=== PATIENT | male | born 1940 | race Caucasian/White ===

== ENCOUNTER 2024-01-16 02:38 | Observation (INO) | payer MEDICARE ==
--- NOTE | 2024-01-16 03:36 | ED ---
Chest Pain HPI - General Source: patient, family Mode of arrival: ambulatory Limitations: no limitations <Shayne Cardenas - Last Filed: 01/16/24 03:37> <Jackie Cruz - Last Filed: 01/16/24 08:00> - General Chief Complaint: Chest Pain Stated Complaint: chest pain Time Seen by Provider: 01/16/24 03:36 - History of Present Illness Initial Comments: 83-year-old male with past medical history significant for known coronary artery disease status post stenting presented to the ED with chief complaint of chest pain. Patient reports that at around 2 AM maximino woke up with pain in the middle of his chest described as a pressure-like feeling. (Shayne Cardenas) Ruben is a pleasant 83-year-old gentleman who presents the ER today after waking from sleep with chest pressure. Patient states that he has a history of coronary artery disease had a STEMI in [address] ates he has done quite well since then. Had a cardiac cath in 2016 and otherwise just has annual follow-ups and occasional stress test. Patient does note that last month he was helping a neighbor did get out large tree roots in his front yard and he did have some lightheadedness and shortness of breath with some chest pressure that caused him to stop working. Patient states that tonight he was asleep when he woke from sleep with chest pressure, he did not get lightheaded or diaphoretic like he did with his previous heart attack but it was concerning to him so he came to the ER for evaluation. (Jackie Cruz) - Related Data Home Medications Medication Instructions Recorded Confirmed Alfuzosin HCl [Uroxatral ER] 10 mg PO DAILY 07/18/16 01/16/24 Atorvastatin [Lipitor] 10 mg PO HS 07/18/16 01/16/24 Aspirin EC [Ecotrin Low Dose] 81 mg PO DAILY 01/16/24 01/16/24 Cholecalciferol [Vitamin D3 (25 50 mcg PO DAILY 01/16/24 01/16/24 Mcg = 1000 Iu)] Glucosamine/Chondr Woodson A Sod [Osteo 1 tab PO HS 01/16/24 01/16/24 Bi-Flex Caplet] Magnesium Oxide [Magnesium] 500 mg PO DAILY 01/16/24 01/16/24 Vitamin B Complex 1 cap PO DAILY 01/16/24 01/16/24 Allergies Allergy/AdvReac Type Severity Reaction Status Date / Time No Known Allergies Allergy Verified 01/16/24 07:10 Review of Systems ROS Other: All systems not noted in ROS Statement are negative. <Shayne Cardenas - Last Filed: 01/16/24 03:37> ROS Other: All systems not noted in ROS Statement are negative. <Jackie Cruz P - Last Filed: 01/16/24 08:00> ROS Statement: Those systems with pertinent positive or pertinent negative responses have been documented in the HPI. EKG Findings - EKG Comments: EKG Findings:: EKG interpreted by me, EKG obtained due to complaint of chest pain, EKG obtained at 3:42 AM, rate is 45 rhythm is sinus bradycardia, CT 156, QRS 88 QTc 409 there is no acute ST elevations or depressions no evidence of ischemia or infarction. Profound bradycardia is noted. <Jackie Cruz - Last Filed: 01/16/24 08:00> Past Medical History Past Medical History: Coronary Artery Disease (CAD), Hypertension, Myocardial Infarction ([place]), Osteoarthritis (OA), Prostate Disorder Additional Past Medical History / Comment(s): hx irregular heartbeat, constipation, hx kidney stones, enlarged prostate Last Myocardial Infarction Date:: 2007 History of Any Multi-Drug Resistant Organisms: None Reported Past Surgical History: Heart Catheterization, Heart Catheterization With Stent Additional Past Surgical History / Comment(s): gary cataracts Past Anesthesia/Blood Transfusion Reactions: Motion Sickness Date of Last Stent Placement:: 2007 Past Psychological History: No Psychological Hx Reported Smoking Status: Never smoker Past Alcohol Use History: None Reported Past Drug Use History: None Reported - Past Family History Brother(s) Family Medical History: Cancer <Shayne Cardenas - Last Filed: 01/16/24 03:37> General Exam Limitations: no limitations <Shayne Cardenas - Last Filed: 01/16/24 03:37> <Jackie Cruz P - Last Filed: 01/16/24 08:00> - General Exam Comments Initial Comments: Visual Physical Exam Vital signs reviewed General: Well-appearing, nontoxic, no acute distress. Head: Normocephalic, atraumatic Eyes: PERRLA, EOMI ENT: Airway patent Chest: Nonlabored breathing Skin: No visual rash, normal skin tone Neuro: Alert and oriented 3 Musculoskeletal: No gross abnormalities (Shayne Cardenas) Physical Exam GENERAL: Patient is well-developed and well-nourished. Patient is nontoxic and well- hydrated and is in no distress. HENT: Normocephalic, Atraumatic. EYES: PERRL, EOMI PULMONARY: Unlabored respirations. No audible rales rhonchi or wheezing was noted. CARDIOVASCULAR: Chronic, regular ABDOMEN: Soft and nontender with normal bowel sounds. SKIN: Skin is clear with no lesions or rashes and otherwise unremarkable. : Deferred NEUROLOGIC: Patient is alert and oriented x3. Moving all extremities spontaneously MUSCULOSKELETAL: Normal extremities with adequate strength and full range of motion. No lower extremity swelling or edema. No calf tenderness. PSYCHIATRIC: Normal psychiatric evaluation. (Jackie Cruz) Course Vital Signs 01/16/24 01/16/24 02:51 06:16 Temperature 97.8 F Pulse Rate 53 L 54 L Respiratory 17 18 Rate Blood Pressure 147/80 144/82 O2 Sat by Pulse 97 97 Oximetry Chest Pain MDM <Shayne Cardenas - Last Filed: 01/16/24 03:37> <Jackie Cruz - Last Filed: 01/16/24 08:00> - MDM Quicknote portion performed. Signed Shayne BECK-Mariana (Shayne Cardenas) Was pt. sent in by a medical professional or institution (KIRAN Castaneda, DATA CONVERSION ANALYST, urgent care, hospital, or skilled nursing...) When possible be specific @ -No Did you speak to anyone other than the patient for history (EMS, parent, family, police, friend...)? What history was obtained from this source @ -No Did you review nursing and triage notes (agree or disagree)? Why? @ -I reviewed and agree with nursing and triage notes Were old charts reviewed (outside hosp., previous admission, EMS record, old EKG, old radiological studies, urgent care reports/EKG's, skilled nursing records)? Report findings @ -Previous visits and cardiac cath from 2015 were reviewed Differential Diagnosis (chest pain, altered mental status, abdominal pain women, abdominal pain men, vaginal bleeding, weakness, fever, dyspnea, syncope, headache, dizziness, GI bleed, back pain, seizure, CVA, palpatations, mental health)? @ -Differential Chest Pain: Stable Angina, Unstable Angina, STEMI, NSTEMI Aortic Dissection, Pneumothorax, Musculoskeletal, Esophageal Spasm GERD, Cholecystitis, Pancreatitis, Zoster, this is not meant to be an all-inclusive list. EKG interpreted by me (3pts min.). @ -As above X-rays interpreted by me (1pt min.). @ -No focal consolidations, no widened mediastinum no pneumothorax no pleural effusions CT interpreted by me (1pt min.). @ -None done U/S interpreted by me (1pt. min.). @ -None done What testing was considered but not performed or refused? (CT, X-rays, U/S, labs)? Why? @ -None What meds were considered but not given or refused? Why? @ -None Did you discuss the management of the patient with other professionals (professionals i.e. , PA, DATA CONVERSION ANALYST, lab, RT, psych nurse, forensic social worker, band top maker, teacher, licensing officer, pillowcase folder)? Give summary @ -No Was smoking cessation discussed for >3mins.? @ -No Was critical care preformed (if so, how long)? @ -No Were there social determinants of health that impacted care today? How? (Homelessness, low income, unemployed, alcoholism, drug addiction, transportation, low edu. Level, literacy, decrease access to med. care, m[facility], rehab)? @ -No Was there de-escalation of care discussed even if they declined (Discuss DNR or withdrawal of care, Hospice)? DNR status @ -No What co-morbidities impacted this encounter? (DM, HTN, Smoking, COPD, CAD, Cancer, CVA, ARF, Chemo, Hep., AIDS, mental health diagnosis, sleep apnea, morbid obesity)? @ -None Was patient admitted / discharged? Hospital course, mention meds given and route, prescriptions, significant lab abnormalities, going to OR and other pertinent info. @ -Admit 83-year-old with known CAD no recent cardiac workup presenting with chest pain that woke him from sleep. Patient also had episode of exertional chest pain that limited his activity last month. Given his history regardless of his normal EKG he will be placed in observation for evaluation by cardiology. Undiagnosed new problem with uncertain prognosis? @ -No Drug Therapy requiring intensive monitoring for toxicity (Heparin, Nitro, Insulin, Cardizem)? @ -No Were any procedures done? @ -No Diagnosis/symptom? @ -Unstable angina Acute, or Chronic, or Acute on Chronic? @ -Acute Uncomplicated (without systemic symptoms) or Complicated (systemic symptoms)? @ -Default Side effects of treatment? @ -No Exacerbation, Progression, or Severe Exacerbation? @ -No Poses a threat to life or bodily function? How? (Chest pain, [place], [place], pneumonia, PE, COPD, DKA, ARF, appy, cholecystitis, CVA, Diverticulitis, Homicidal, Suicidal, threat to staff... and all critical care pts) @ -Yes (Jackie Cruz) Disposition <Shayne Cardenas - Last Filed: 01/16/24 03:37> Is patient prescribed a controlled substance at d/c from ED?: No <Jackie Cruz - Last Filed: 01/16/24 08:00> Clinical Impression: Chest pain Disposition: ADMITTED IP TO THIS HOSP Condition: Stable
[2024-01-16 04:10] LABS: Basophils % (A) 1 %; Eosinophils # (A) 0.2 k/uL (0-0.7); Eosinophils % (A) 4 %; HCT 43.9 % (39.0-53.0); HGB 14.3 gm/dL (13.0-17.5); Lymphocytes # (A) 1.8 k/uL (1.0-4.8); Lymphocytes % (A) 35 %; MCH 32.3 pg (25.0-35.0); MCHC 32.6 g/dL (31.0-37.0); MCV 98.9 fL (80.0-100.0); Mean Platelet Volume 7.3; Monocytes # (A) 0.4 k/uL (0-1.0); Monocytes % (A) 7 %; Neutrophils # (A) 2.7 k/uL (1.3-7.7); Neutrophils % (A) 52 %; Platelet Count 178 k/uL (150-450); RBC 4.44 m/uL (4.30-5.90); RDW 12.5 % (11.5-15.5); WBC 5.1 k/uL (3.8-10.6)
--- NOTE | 2024-01-16 04:13 | XR ---
EXAMINATION TYPE: XR chest 2V DATE OF EXAM: 01/16/2024 COMPARISON: Prior chest x-ray July 30, 2011 HISTORY: Chest pain. TECHNIQUE: Frontal and lateral views of the chest are obtained. FINDINGS: There is no suspicious new focal air space opacity, pleural effusion, or pneumothorax seen . The cardiac silhouette size remains within normal limits. Underlying scoliotic curvature with mult ilevel spurring in the lower thoracic spine is redemonstrated. IMPRESSION: No acute cardiopulmonary process.
[2024-01-16 04:28] LABS: ALT 26 U/L (4-49); AST 26 U/L (17-59); African American GFR (CKD) 69 (>60 ml/min/1.73 sqM); Albumin 3.7 g/dL (3.5-5.0); Alkaline Phosphatase 67 U/L (38-126); Anion Gap 3 mmol/L; Blood Urea Nitrogen 26 mg/dL (9-20); Calcium 9.2 mg/dL (8.4-10.2); Carbon Dioxide 31 mmol/L (22-30); Chloride 106 mmol/L (98-107); Glucose 84 mg/dL (74-99); Magnesium 2.2 mg/dL (1.6-2.3); Non-African American GFR(CKD) 60 (>60 ml/min/1.73 sqM); Potassium 4.3 mmol/L (3.5-5.1); Sodium 140 mmol/L (137-145); Total Bilirubin 0.7 mg/dL (0.2-1.3); Total Protein 6.5 g/dL (6.3-8.2)
[2024-01-16 04:33] LABS: Partial Thromboplastin Time 25.9 sec (22.0-30.0); Prothrombin Time 10.9 sec (10.0-12.5)
[2024-01-16] MEDS: ASPIRIN 81 MG PO STA (05:08)
[2024-01-16] MEDS ORDERED: NITROGLYCERIN SL TABS 0.4 MG TAB SUBLINGUAL PRN (05:37)
--- NOTE | 2024-01-16 06:33 | P.HPIM ---
History of Present Illness H&P Date: 01/16/24 Chief Complaint: Chest pain 83-year-old male with history of CAD status post stents 2007 Patient coming in for sudden onset chest pain that woke him up from sleep he described it as pressure-like across his chest 8 out of 10 in severity without any nausea vomiting profuse sweating palpitations however he was feeling dizzy lightheaded and decided to take some aspirin and come to the hospital for evaluation. He added that he has been feeling dizzy and lightheaded for the past week is all triggered by some yard work that he done a week ago that lasted about 7 hours he was exhausted toward the end where he was pulling roots and big plants of the ground where he also felt some chest heaviness at that time was profusely sweating and feeling dizzy Otherwise overall he has been in good health and able to do work around the house and be active without limitations related shortness of breath or chest pain. Patient denies any tobacco smoking illicit drugs or heavy alcohol Patient denies any recent illness or hospitalization review of systems Pertinent positives as noted in HPI. All other systems were reviewed and are negative on exam Constitutional: No acute distress, conversant, pleasant Eyes: Anicteric sclerae, moist conjunctiva, Pupils equal round reactive to light ENMT: NC/AT Oropharynx clear, no erythema, or exudates Neck: Supple, no masses, or JVD No carotid bruits No thyromegaly Lungs: Clear to auscultation Clear to percussion Normal respiratory effort, no accessory muscle use Cardiovascular: Heart regular in rate and rhythm, No murmurs, gallops, or rubs No peripheral edema Abdominal: Soft Nontender, no guarding, rebound or rigidity Abdomen moving with respiration Normoactive bowel sounds Extremities: No digital cyanosis No clubbing Pedal pulses intact and symmetrical Radial pulses intact and symmetrical No calf tenderness Psychiatric: Alert and oriented to person, place and time Appropriate affect fair judgement Neuro Muscles Strength 5/5 in all 4 extremities Sensation to light touch grossly present throughout Cranial nerves II-XII grossly intact Past Medical History Past Medical History: Coronary Artery Disease (CAD), Hypertension, Myocardial Infarction ([place]), Osteoarthritis ([place]), Prostate Disorder Additional Past Medical History / Comment(s): hx irregular heartbeat, c onstipation, hx kidney stones, enlarged prostate Last Myocardial Infarction Date:: 2007 History of Any Multi-Drug Resistant Organisms: None Reported Past Surgical History: Heart Catheterization, Heart Catheterization With Stent Additional Past Surgical History / Comment(s): gary cataracts Past Anesthesia/Blood Transfusion Reactions: Motion Sickness Date of Last Stent Placement:: 2007 Past Psychological History: No Psychological Hx Reported Smoking Status: Never smoker Past Alcohol Use History: None Reported Past Drug Use History: None Reported - Past Family History Brother(s) Family Medical History: Cancer Medications and Allergies Home Medications Medication Instructions Recorded Confirmed Type Alfuzosin HCl [Uroxatral ER] 10 mg PO DAILY 07/18/16 07/22/16 History Aspirin 325 mg PO DAILY 07/18/16 07/22/16 History Atorvastatin [Lipitor] 10 mg PO Q48H 07/18/16 07/22/16 History Atorvastatin [Lipitor] 20 mg PO Q48H 07/18/16 07/22/16 History Cholecalciferol [Vitamin D3] 2,000 unit PO DAILY 07/18/16 07/22/16 History Metoprolol Tartrate [Lopressor] 12.5 mg PO BID 07/18/16 07/22/16 History Allergies Allergy/AdvReac Type Severity Reaction Status Date / Time No Known Allergies Allergy Verified 07/22/16 06:47 Physical Exam Vitals: Vital Signs Temp Pulse Resp BP Pulse Ox 01/16/24 06:16 54 L 18 144/82 97 01/16/24 02:51 97.8 F 53 L 17 147/80 97 Intake and Output 01/15/24 01/15/24 01/16/24 14:59 22:59 06:59 Other: Weight 61.235 kg Results CBC & Chem 7: 01/16/24 03:57 01/16/24 03:57 Labs: Abnormal Lab Results - Last 24 Hours (Table) 01/16/24 Range/Units 03:57 Carbon Dioxide 31 H (22-30) mmol/L BUN 26 H (9-20) mg/dL Assessment and Plan Assessment: 83-year-old male with CAD status post stents 2007 coming in for chest pain I discussed case with ED doctor and accepted the admission for chest pain to rule out acute coronary syndrome with anticipated length of stay less than 2 midnights Atypical chest pain rule out ACS Cardiac monitoring Monitor vital signs EKG no acute ST changes Chest x-ray no acute cardiopulmonary process Nitro as needed for pain Continue with aspirin 325 mg daily Continue with statin Continue with metoprolol 12.5 mg p.o. d twice daily, hold for systolic blood pressure less than 90 or heart rate less than 55 Cardiology consult Blood work unremarkable white count 5.1 hemoglobin 14 Sodium 140 potassium 4.3 BUN 36 creatinine 1.1 Troponins negative continue to trend Full code Heparin subcu 3 times daily
[2024-01-16] MEDS ORDERED: HEPARIN SODIUM,PORCINE 10,000 UNIT in SODIUM CHLORIDE 0.9% 1,000 ML IRRIGATION PRN (07:00)
[2024-01-16] MEDS ORDERED: HEPARIN SODIUM,PORCINE (1 ML) 2,500 UNIT in SODIUM CHLORIDE 0.9% 250 ML IRRIGATION PRN (07:00)
[2024-01-16] MEDS: HEPARIN SODIUM,PORCINE 5,000 UNIT/ML 1 ML VIAL SQ SCH (08:00)
[2024-01-16] MEDS ORDERED: ATORVASTATIN 20 MG TAB PO SCH (09:00)
[2024-01-16] MEDS ORDERED: METOPROLOL TARTRATE 12.5 MG TAB PO SCH (09:00)
[2024-01-16] MEDS ORDERED: ALPRAZolam 0.25 MG TAB PO PRN (10:16)
[2024-01-16] MEDS ORDERED: ALPRAZolam 0.5 MG TAB PO PRN (10:16)
[2024-01-16] MEDS: ASPIRIN 325 MG TAB PO STA (10:47)
[2024-01-16] MEDS: SODIUM CHLORIDE 0.9% 1,000 ML IV SCH ×2 (10:48→14:36)
[2024-01-16] MEDS: ATORVASTATIN 80 MG TAB PO STA (10:48)
--- NOTE | 2024-01-16 10:50 | P.CRDCN ---
History of Present Illness Consult date: 01/16/24 Consult reason: chest pain History of present illness: History of present illness: This is an 83-year-old male patient of Dr. HAM Travis with past medical history of coronary artery disease with prior [place] and PCI, hypertension, dyslipidemia. We have been asked to evaluate the patient for chest pain. Patient presented to the emergency center due to chest pain that started around 2 AM in the morning in the middle of his chest was pressure-like. This pain woke him from sleep. Patient is also noted symptoms of lightheadedness shortness of breath and chest pain with exertion. Discussed diagnostic and treatment options and he is agreeable to move forward with cardiac catheterization today. EKG sinus bradycardia 45 bpm Chest x-ray: No acute process CBC INR unremarkable. BUN 26 creatinine 1.14, potassium 4.3, troponin negative x 2. Liver function test are normal. Magnesium 2.2. Home cardiac medications: Aspirin 81 mg daily, atorvastatin 10 mg daily, magnesium 500 mg daily Patient underwent cardiac catheterization [address] HAM Travis which revealed right dominant system. Smooth narrowing of 35% of the RCA just before the st ented segment. Stented segment is widely patent. LAD is 40% mid lesion with mild calcification. Nondominant circumflex is fair in caliber and distribution and is free of significant disease. EF is 55%. Lexiscan Cardiolite stress test performed 09/09/2022 revealed unremarkable Lexiscan. Normal MPI with normal ejection fraction. An inferior wall fixed defect with normal contractility consistent with diaphragmatic attenuation. No stress-induced ischemia. EF is more than 60%. Echocardiogram performed 12/26/2021 in the office revealed EF of 50 to 55%. Mild aortic regurgitation. Moderate mitral regurgitation, moderate tricuspid regurgitation. PASP 43 mmHg. Review Of Systems: At the time of my exam: CONSTITUTIONAL: Denies fever or chills. HEENT: Denies blurred vision, vision changes, or eye pain. Denies hemoptysis CARDIOVASCULAR: Denies chest pain. Denies orthopnea. Denies PND. Denies palpitations RESPIRATORY: Denies shortness of breath. GASTROINTESTINAL: Denies abdominal pain. Denies nausea or vomiting. HEMATOLOGIC: Denies bleeding disorders. GENITOURINARY: Denies any blood in urine. SKIN: Denies pruitis. Denies rash. Physical examination: Gen: This is an 83-year-old male in no acute distress VS: reviewed HEENT: Head is atraumatic, normocephalic. Pupils equal, round. Sclerae is anicteric. NECK: Supple. No JVD. LUNGS: Clear to auscultation. No wheezes or rhonchi. No intercostal retractions. HEART: Regular rate and rhythm. No murmur. ABDOMEN: Soft No tenderness. EXTREMITIES: No pedal edema. No calf tenderness. NEUROLOGICAL: Patient is awake, alert and oriented x3. Assessment: Chest pain exertional with lightheadedness dizziness, rule out coronary artery disease as culprit History of coronary artery disease with previous PCI of the RCA Hypertension Dyslipidemia Plan: Resume patient's home cardiac medications Schedule patient for cardiac catheterization with Dr. HAM Travis today. Obtain 2-D echocardiogram and Doppler study to assess cardiac structure and function Further recommendations to follow based upon clinical course Thank you kindly for this consultation. Nurse practitioner note has been reviewed, I agree with documented findings and plan of care. Patient was seen and examined. Past Medical History Past Medical History: Coronary Artery Disease (CAD), Hypertension, Myocardial Infarction ([place]), Osteoarthritis ([place]), Prostate Disorder Additional Past Medical History / Comment(s): hx irregular heartbeat, constipation, hx kidney stones, enlarged prostate Last Myocardial Infarction Date:: 2007 History of Any Multi-Drug Resistant Organisms: None Reported Past Surgical History: Heart Catheterization, Heart Catheterization With Stent Additional Past Surgical History / Comment(s): gary cataracts Past Anesthesia/Blood Transfusion Reactions: Motion Sickness Date of Last Stent Placement:: 2007 Past Psychological History: No Psychological Hx Reported Smoking Status: Never smoker Past Alcohol Use History: None Reported Past Drug Use History: None Reported - Past Family History Brother(s) Family Medical History: Cancer Medications and Allergies Home Medications Medication Instructions Recorded Confirmed Type Alfuzosin HCl [Uroxatral ER] 10 mg PO DAILY 07/18/16 01/16/24 History Atorvastatin [Lipitor] 10 mg PO HS 07/18/16 01/16/24 History Aspirin EC [Ecotrin Low Dose] 81 mg PO DAILY 01/16/24 01/16/24 History Cholecalciferol [Vitamin D3 (25 50 mcg PO DAILY 01/16/24 01/16/24 History Mcg = 1000 Iu)] Glucosamine/Chondr Woodson A Sod [Osteo 1 tab PO HS 01/16/24 01/16/24 History Bi-Flex Caplet] Magnesium Oxide [Magnesium] 500 mg PO DAILY 01/16/24 01/16/24 History Vitamin B Complex 1 cap PO DAILY 01/16/24 01/16/24 History Allergies Allergy/AdvReac Type Severity Reaction Status Date / Time No Known Allergies Allergy Verified 01/16/24 07:10 Physical Exam Vitals: Vital Signs Temp Pulse Pulse Resp BP BP Pulse Ox 01/16/24 08:10 97.6 F 54 L 16 155/72 98 01/16/24 06:16 54 L 18 144/82 97 01/16/24 02:51 97.8 F 53 L 17 147/80 97 Intake and Output 01/15/24 01/16/24 01/16/24 22:59 06:59 14:59 Other: # Voids 1 Weight 61.235 kg Results 01/16/24 03:57 01/16/24 03:57 Cardiac Enzymes 01/16/24 01/16/24 01/16/24 Range/Units 03:57 03:57 07:12 AST 26 (17-59) U/L Troponin I <0.012 <0.012 (0.000-0.034) ng/mL Coagulation 01/16/24 Range/Units 03:57 PT 10.9 (10.0-12.5) sec APTT 25.9 (22.0-30.0) sec CBC 01/16/24 Range/Units 03:57 WBC 5.1 (3.8-10.6) k/uL RBC 4.44 (4.30-5.90) m/uL Hgb 14.3 (13.0-17.5) gm/dL Hct 43.9 (39.0-53.0) % Plt Count 178 (150-450) k/uL Comprehensive Metabolic Panel 01/16/24 Range/Units 03:57 Sodium 140 (137-145) mmol/L Potassium 4.3 (3.5-5.1) mmol/L Chloride 106 (98-107) mmol/L Carbon Dioxide 31 H (22-30) mmol/L BUN 26 H (9-20) mg/dL Creatinine 1.14 (0.66-1.25) mg/dL Glucose 84 (74-99) mg/dL Calcium 9.2 (8.4-10.2) mg/dL AST 26 (17-59) U/L ALT 26 (4-49) U/L Alkaline Phosphatase 67 (38-126) U/L Total Protein 6.5 (6.3-8.2) g/dL Albumin 3.7 (3.5-5.0) g/dL Current Medications Generic Name Dose Route Start Last Admin Trade Name Freq PRN Reason Stop Dose Admin Aspirin 81 mg 01/17/24 09:00 Aspirin 81 Mg PO DAILY [facility] Atorvastatin Calcium 10 mg 01/16/24 21:00 Atorvastatin 10 Mg Tab PO HS NIKKI Heparin Sodium (Porcine) 5,000 unit 01/16/24 08:00 01/16/24 08:00 Heparin Sodium,Porcine 5,000 Unit/Ml 1 Ml Vial SQ 5,000 unit Q8HR NIKKI Administration Nitroglycerin 0.4 mg 01/16/24 05:37 Nitroglycerin Sl Tabs 0.4 Mg Tab SUBLINGUAL Q5M PRN Chest Pain Intake and Output 01/15/24 01/16/24 01/16/24 22:59 06:59 14:59 Other: # Voids 1 Weight 61.235 kg 01/16/24 03:57 01/16/24 03:57
[2024-01-16 12:24] LABS: Glucose,Whole Blood 79 mg/dL (70-110)
[2024-01-16] MEDS ORDERED: LIDOCAINE 1% INJ 10MG/ML (20 ML MDV) ONE (12:57)
[2024-01-16] MEDS ORDERED: HEPARIN SODIUM 1,000 UN/ML (10ML VL) ONE (12:57)
[2024-01-16] MEDS ORDERED: VERAPAMIL 2.5 MG/ML 2 ML AMP ONE (12:57)
[2024-01-16] MEDS: LIDOCAINE 1% INJ 10MG/ML (20 ML MDV) SQ ONE (13:19)
[2024-01-16] MEDS: MIDAZOLAM 2 MG/2 ML VIAL IVP ONE (13:19)
[2024-01-16] MEDS: IV FLUID CONTINUATION 1,000 ML IV ONE (13:22)
[2024-01-16] MEDS: VERAPAMIL SYRINGE (5 MG/10 ML) INTRAARTER ONE (13:24)
[2024-01-16] MEDS: HEPARIN SODIUM 1,000 UN/ML (10ML VL) IV ONE (13:27)
[2024-01-16] MEDS: NITROGLYCERIN 1000MCG/10ML SYRINGE INTRACORON ONE (13:46)
[2024-01-16] MEDS: IOPAMIDOL-370 100ML BTL INJ ONE (13:50)
--- NOTE | 2024-01-16 14:21 | P.DS ---
Providers Date of admission: 01/16/24 05:37 Expected date of discharge: 01/16/24 Attending physician: Baldomero Hitchcock MD Consults: 01/16/24 05:37 Consult Physician Urgent Consulting Provider: [facility] Consult Reason/Comments: chest pain, known CAD, stent 2008 Do you want consulting provider notified?: Yes, Notify in am Primary care physician: Ras Travis Hospital Course: Atypical chest pain rule out ACS Hospital Course: 83-year-old male with history of CAD status post stents 2007 presented for sudden onset chest pain. His troponins were negative. EKG no acute ST changes. Chest x-ray no acute cardiopulmonary process. Blood work unremarkable white count 5.1 hemoglobin 14. Sodium 140 potassium 4.3 BUN 36 creatinine 1.1. He was seen by cardiology who did LHC and noted patent coronary arteries. Pt was cleared for discharge with instructions to increase his lipitor to 40mg HS from 10mg. Gen: In NAD, non-toxic HEENT: normocephalic, atraumatic, hearing acuity is intant, mucous membranes moist CVS: perfusing all extremities well, no pitting edema, regular rate and rhythm without murmurs Respiratory: symmetric chest expansion, no accessory muscle use, clear to auscultation bilaterally GI: soft, NTTP, ND, : no suprapubic tenderness, no CVA tenderness MSK/Derm: no rashes, cyanosis Neuro: CN II-XII intact, no motor weakness, Psych: cooperative, euthymic mood, judgment and insight is intact Patient Condition at Discharge: Good Plan - Discharge Summary New Discharge Prescriptions: Continue Alfuzosin HCl [Uroxatral ER] 10 mg PO DAILY Cholecalciferol [Vitamin D3 (25 Mcg = 1000 Iu)] 50 mcg PO DAILY Vitamin B Complex 1 cap PO DAILY Magnesium Oxide [Magnesium] 500 mg PO DAILY Glucosamine/Chondr Woodson A Sod [Osteo Bi-Flex Caplet] 1 tab PO HS Aspirin EC [Ecotrin Low Dose] 81 mg PO DAILY Changed Atorvastatin [Lipitor] 40 mg PO HS #60 tab Discharge Medication List Alfuzosin HCl [Uroxatral ER] 10 mg PO DAILY 07/18/16 [History] Aspirin EC [Ecotrin Low Dose] 81 mg PO DAILY 01/16/24 [History] Atorvastatin [Lipitor] 40 mg PO HS #60 tab 01/16/24 [Rx] Cholecalciferol [Vitamin D3 (25 Mcg = 1000 Iu)] 50 mcg PO DAILY 01/16/24 [History] Glucosamine/Chondr Woodson A Sod [Osteo Bi-Flex Caplet] 1 tab PO HS 01/16/24 [History] Magnesium Oxide [Magnesium] 500 mg PO DAILY 01/16/24 [History] Vitamin B Complex 1 cap PO DAILY 01/16/24 [History] Follow up Appointment(s)/Referral(s): Ras Travis MD [Primary Care Provider] - 01/21/24 2:30 pm Discharge Disposition: HOME SELF-CARE
--- NOTE | 2024-01-16 15:24 | CA ---
Transthoracic Echo Report Name: Ruben Ortega Age: 83 Gender: M : 1940 Exam Date: 01/16/2024 11:36 Exam Location: [facility] Ht (in): 67 Wt (lb): 135 Ordering Physician: Louise Steele Attending/Referring Phys: [id number], Cedric Kennel Technician Leesa Benson RDCS Procedure CPT: Indications: LVF Cardiac Hx: Technical Quality: Contrast 1: Total Dose (mL): Contrast 2: Total Dose (mL): MEASUREMENTS (Male / Female) Normal Values 2D ECHO LV Diastolic Diameter PLAX 4.2 cm 4.2 - 5.9 / 3.9 - 5.3 cm LV Systolic Diameter PLAX 3.1 cm IVS Diastolic Thickness 1.0 cm 0.6 - 1.0 / 0.6 - 0.9 cm LVPW Diastolic Thickness 0.7 cm 0.6 - 1.0 / 0.6 - 0.9 cm LV Relative Wall Thickness 0.4 LVOT Diameter 1.8 cm Aortic Root Diameter 3.3 cm LA Systolic Diameter LX 3.1 cm 3.0 - 4.0 / 2.7 - 3.8 cm LV Diastolic Volume MOD BP 91.6 cm??? 67 - 155 / 56 - 104 cm??? LV Systolic Volume MOD BP 20.1 cm??? - 58 / 19 - 49 cm??? LV Ejection Fraction MOD BP 78.0 % >= 55 % LV Cardiac Index MOD BP 2145.1 cm???/min???m??? LV Diastolic Volume MOD 4C 87.5 cm??? LV Systolic Volume MOD 4C 17.4 cm??? LV Ejection Fraction MOD 4C 80.1 % LV Cardiac Index MOD 4C 2103.4 cm???/min???m??? LV Diastolic Length 4C 7.9 cm LV Systolic Length 4C 5.9 cm LV Diastolic Volume MOD 2C 93.8 cm??? LV Systolic Volume MOD 2C 22.8 cm??? LV Ejection Fraction MOD 2C 75.7 % LV Cardiac Index MOD 2C 2132.1 cm???/min???m??? LV Diastolic Length 2C 7.7 cm LV Systolic Length 2C 6.2 cm LA Volume 46.6 cm??? 18 - 58 / 22 - 52 cm??? LA Volume Index 27.4 cm???/m??? 16 - 28 cm???/m??? DOPPLER AV Peak Velocity 134.6 cm/s AV Peak Gradient 7.2 mmHg AV Mean Velocity 93.1 cm/s AV Mean Gradient 3.8 mmHg AV Velocity Time Integral 31.4 cm AI Peak Velocity 288.0 cm/s AI Peak Gradient 33.2 mmHg AI Pressure Half Time 612.6 ms LVOT Peak Velocity 99.7 cm/s LVOT Peak Gradient 4.0 mmHg LVOT Velocity Time Integral 22.9 cm LVOT Stroke Volume 58.4 cm??? LVOT Stroke Volume Index 34.2 ml/m??? LVOT Cardiac Index 1753.8 cm???/min???m??? AV Area Cont Eq vti 1.9 cm??? AV Area Cont Eq pk 1.9 cm??? MR Peak Velocity 527.0 cm/s MR Peak Gradient 111.1 mmHg Mitral E Point Velocity 78.3 cm/s Mitral A Point Velocity 57.8 cm/s Mitral E to A Ratio 1.4 MV Deceleration Time 198.6 ms MV E' Velocity 6.5 cm/s Mitral E to MV E' Ratio 12.0 TR Peak Velocity 221.3 cm/s TR Peak Gradient 19.6 mmHg PV Peak Velocity 52.7 cm/s PV Peak Gradient 1.1 mmHg FINDINGS Left Ventricle Normal left ventricular systolic function with no obvious regional wall motion abnormalities. Left ventricular ejection fraction is estimated at 50-55%. Mild left ventricular dilatation. Right Ventricle Normal right ventricular size. Right ventricular systolic pressure estimated at 27.54 mmhg. Right Atrium Mild right atrial dilatation. Left Atrium Normal left atrial size. Mitral Valve Mild mitral regurgitation. Aortic Valve Mild aortic regurgitation. Tricuspid Valve Qksl-mg-conlykef tricuspid regurgitation. Pulmonic Valve No pulmonic regurgitation. Pericardium No pericardial effusion. Aorta Normal size aortic root and proximal ascending aorta. CONCLUSIONS Left ventricular EF 50-55% RVSP 27 Mild mitral regurgitation Mild to moderate tricuspid regurgitation No pericardial effusion Previewed by: Dr. Francisco Pelaez DO (Electronically Signed) Final Date: 16 January 2024 15:23
[2024-01-16 18:39] VITALS: PULSE 59
[2024-01-16] MEDS ORDERED: ATORVASTATIN 10 MG TAB PO SCH (21:00)
[2024-01-16 21:01] VITALS: BP 113/65; RESP 16; TEMP 97.9
--- NOTE | 2024-01-16 22:35 | CC ---
CARDIAC CATHETERIZATION REPORT PROCEDURES PERFORMED: 1. Left heart catheterization and coronary angiography. 2. IFR assessment of proximal RCA moderate lesion of about 50% to 55%. PERFORMED BY: Dr. Breann Travis. Moderate conscious sedation time was 31 minutes. Patient was administered Versed. Oxygen saturation and EKG were monitored closely. CLINICAL INFORMATION: Mr. Ruben Ortega is 83-year-old gentleman with known history of prior inferior NC and PCI of RCA with a large caliber stent performed in 2007 that was patent on repeat catheterization in 2011 and also in 2016. He came in to the hospital with chest pain suggestive of angina with negative troponins, but because of his known previous disease and presentation, he was advised cardiac cath by Dr. Pelaez. Risks, benefits, and options were explained. The patient understood all details and wished to proceed with the procedure. PROCEDURE NOTE: Under local anesthesia and strict aseptic precautions, a 6-Comoran introducer was placed in the right radial artery. Using JL 3.5 and JR4 catheters, I performed coronary angiography and the same right catheter was used to check LV pressure, but LV-gram was not performed. I then performed the IFR assessment of the proximal RCA lesion which was about 50% to 55%. I used a standard right Natan catheter, and an Omni wire. With this combination after appropriate normalization and calibration, IFR assessment was performed. IFR was 0.98 and 0.99. This was unremarkable. The catheter and sheath were taken out and TR band applied as per protocol. The saturation the fingers of the right hand of 96%. The patient tolerated procedure well without complication. CARDIAC CATHETERIZATION FINDINGS: The left ventricular end-diastolic pressure was about 14 mmHg without any gradient across aortic valve. CORONARY ANGIOGRAPHY FINDINGS: Right Coronary Artery: This is a very dominant vessel that was previously stented in 2008. The stented area is widely patent. Just before the stent, there is a smooth narrowing of about 50% to 55%. Beyond the stent, the caliber is good and it divides into a large PDA and PLV, both of which are free of significant disease, only minor irregularities are noted. The RCA is therefore superdominant 50% to 55% proximal lesion, which is located at the proximal end of the stent and then the most of the stented segment is widely patent with good flow. Left Main Coronary Artery: Short patent disease-free vessel that bifurcates into LAD and circumflex. Left Anterior Descending Coronary Artery: Good caliber vessel, extends along the anterior wall, gives off septal and diagonal branches. The diagonal branch has about a 50% lesion proximally, is a small caliber vessel, but the lesion is no more than 50%. Beyond the lesion, no significant disease. LAD itself in the midportion has about a 40% narrowing. Beyond it, the caliber improves and runs all the way to the apex without any significant disease. LAD therefore has a 40% lesion as was the diagonal. Left Posterior Circumflex Coronary Artery: Nondominant vessel, fair caliber, gives off a good-sized obtuse marginal that bifurcates into 2 branches. No significant disease. IFR assessment was performed and this was of the proximal RCA lesion at the proximal end of the stent and also proximal to the stent. This area has about 50% to 55% angiographically. IFR was negative and suggesting it is not a significant lesion. The values were 0.98 and 0.99. FINAL IMPRESSION: This patient has a moderate lesion in the proximal RCA at the proximal end of the stent, but IFR was negative. RCA super dominant. Left system with a 40% mid LAD lesion and diagonal lesion. Circumflex nondominant good caliber fair distribution is free of significant disease. Slightly elevated filling pressures. Normal IFR of RCA. RECOMMENDATIONS: Aggressive medical therapy and risk factor modification. Patient can be discharged later on today. Findings were discussed with the patient as well as his /girlfriend. We will increase atorvastatin to 40 mg daily. MMODL / IJN: [id number] /
[2024-01-17] MEDS ORDERED: ASPIRIN 81 MG PO SCH (09:00)
== END 2024-01-16 20:25 | disposition home or self-care (01) ==
LOC: EC 02:38 → 6NMEDSUR 05:37
PROVIDERS: ADMIT Internal Medicine; ATTEND Internal Medicine
DX: R07.89 Other chest pain (principal); I25.10 Atherosclerotic heart disease of native coronary artery without angina pectoris; M19.90 Unspecified osteoarthritis, unspecified site; E78.5 Hyperlipidemia, unspecified; I08.1 Rheumatic disorders of both mitral and tricuspid valves; R00.1 Bradycardia, unspecified; I10 Essential (primary) hypertension; I25.2 Old myocardial infarction; Z79.899 Other long term (current) drug therapy; Z79.82 Long term (current) use of aspirin; Z95.5 Presence of coronary angioplasty implant and graft
CPT/HCPCS: 96372; 99285; 36415; 93005; 93306; 93458 ×2; 93799; 80053; 83735; 84484; 85025; 85610; 85730; 71046; G0378; C1769 ×3; C1887; C1894; J2250; J1644 ×2; J2001; Q9967; J2305